=== PATIENT | female | born 1980 ===

== ENCOUNTER 2017-10-18 09:31 | Emergency (ER) | payer SELFPAY ==
[2017-10-18 09:41] VITALS: BP 136/88; PULSE 65; RESP 16; TEMP 98; O2SAT 100
[2017-10-18 09:42] VITALS: BMI 25.2
[2017-10-18] MEDS ORDERED: Naproxen 500 MG TAB PO STA (10:24)
--- NOTE | 2017-10-18 10:30 | ED PDOC ---
Upper Extremity Pain/Injury Time Seen by Provider: 10/18/17 10:11 Chief Complaint (Nursing): Upper Extremity Problem/Injury History Per: Patient History/Exam Limitations: no limitations Additional Complaint(s): 37 yo F R arm dominant, c/o 5 day h/o gradually increasing pain to the L lateral arm that is reproducible when she crosses her L arm over her chest with intermittent numbness to the area. 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 Reports no trauma, injury, fever, other joint pain, chest pain, SOB, dizziness, headache, other joint pain, neck pain or back pain. Past Medical History Vital Signs: Last Vital Signs Temp 98 F 10/18/17 09:41 Pulse 65 10/18/17 09:41 Resp 16 10/18/17 09:41 BP 136/88 10/18/17 09:41 Pulse Ox 100 10/18/17 09:41 - Family History Family History: States: No Known Family Hx - Home Medications Home Medications: Ambulatory Orders Medication Instructions Recorded Ondansetron Hydrochloride 4 mg PO Q6 PRN #12 tab 05/24/14 Ranitidine HCl [Zantac 150] 150 mg PO BID #20 tab 05/24/14 Naproxen 500 mg PO BID #30 tab 10/18/17 - Allergies Allergies/Adverse Reactions: Allergies Allergy/AdvReac Type Severity Reaction Status Date / Time No Known Allergies Allergy Verified 10/18/17 09:52 Review of Systems Constitutional: Negative for: Fever, Malaise Cardiovascular: Negative for: Chest Pain, Palpitations, Edema Respiratory: Negative for: Cough, Shortness of Breath Musculoskeletal: Positive for: Arm Pain (L arm pain). Negative for: Neck Pain, Shoulder Pain, Back Pain, Hand Pain Skin: Negative for: Rash, Lesions Neurological: Negative for: Headache, Dizziness Physical Exam - Reviewed Vital Signs Reviewed: Yes - Physical Exam Appears: Positive for: Well, Non-toxic, No Acute Distress Head Exam: Positive for: ATRAUMATIC, NORMAL INSPECTION, NORMOCEPHALIC Skin: Positive for: Normal Color, Warm, DRY Eye Exam: Positive for: EOMI, Normal appearance, PERRL ENT: Positive for: Normal ENT Inspection Neck: Positive for: Normal, Painless ROM, Supple Cardiovascular/Chest: Positive for: Regular Rate, Rhythm. Negative for: Murmur Respiratory: Positive for: Normal Breath Sounds. Negative for: Rhonchi, Wheezing Pulses-Radial (L): 2+ Pulses-Radial (R): 2+ Back: Positive for: Normal Inspection. Negative for: L CVA Tenderness, R CVA Tenderness, Vertebral Tenderness Extremity: Positive for: Normal ROM, Capillary Refill (<2 sec), Other (+pain elicited with cross arm test of the L arm). Negative for: Tenderness, Deformity , Swelling Neurologic/Psych: Positive for: Alert, weighter II-XII (intact), Oriented. Negative for: Motor/Sensory Deficits - ECG O2 Sat by Pulse Oximetry: 100 Medical Decision Making Medical Decision Making: Plan : - EKG - XR L shoulder - Napsoryn PO XR L shoulder : no fracture, no dislocation, as read by HÉCTOR. EKG : NSR at 65 bpm, (-) acute St changes, as read by PA. X-ray results discussed with the patient in great detail. Patient advised that her symptoms can be due to a rotator cuff impingement. Patient instructed to follow-up with orthopedic referral provided in 1-2 days without fail. Advised to take medication as prescribed. Rest joint and avoid heavy lifting. Return to the emergency room at any time for any new or worsening symptoms. Patient states she fully agrees with and understands discharge instructions. States that she agrees with the plan and disposition. Verbalized and repeated discharge instructions and plan. I have given the patient opportunity to ask any additional questions. Disposition - Clinical Impression Clinical Impression: Left arm pain - Patient ED Disposition Is Patient to be Admitted: No Counseled Patient/Family Regarding: Studies Performed, Diagnosis, Need For Followup, Rx Given - Disposition Referrals: [facility] [Outside] Disposition: Routine/Home Disposition Time: 11:30 Condition: STABLE Additional Instructions: Thank you for letting us take care of you today. You were treated for L arm pain , consider rotator cuff. The emergency medical care you received today was directed towards the acute presenting symptoms. If you were prescribed any medication, please fill it and give as directed. It may take several days for your symptoms to resolve. Return to the Emergency Department at any time if symptoms worsen, do not improve, or if any other problems arise. Please call one of the physicians/clinics you have been referred to that are listed on the Patient Visit Information form that is included in your discharge packet. Bring any paperwork you were given at discharge with you along with any medications to your follow up visit. Our treatment cannot replace ongoing medical care by a primary care provider (PCP) outside of the emergency department. Thank you for allowing the [facility] team to be part of your care today. If you had an X-Ray : A Radiologist will review the ED reading if any change in treatment is needed we will contact you. 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
[2017-10-18] MEDS ORDERED: Naproxen 500 MG TAB PO ONE (10:50)
--- NOTE | 2017-10-18 12:33 | RAD ---
Date of service: 10/18/2017 PROCEDURE: Radiographs of the Left Shoulder HISTORY: Pain. No history of recent/ related trauma provided COMPARISON: No prior. FINDINGS: BONES: Normal. No fracture. JOINTS: Normal. Glenohumeral and acromioclavicular joints preserved. No osteoarthritis. SOFT TISSUES: Normal. OTHER FINDINGS: None. IMPRESSION: Normal radiographs of the left shoulder.
--- NOTE | 2017-10-18 17:03 | CARD ---
APPROVED REPORT Date of service: 10/18/2017 <Conclusion> Normal sinus rhythm with sinus arrhythmia Normal ECG
== END 2017-10-18 12:04 | disposition home or self-care (01) ==
LOC: H.ER 09:31
DX: M79.602 Pain in left arm (principal); R20.2 Paresthesia of skin

== ENCOUNTER 2017-12-30 15:53 | Emergency (ER) | payer SELFPAY ==
[2017-12-30 15:54] VITALS: BMI 25.2
[2017-12-30 15:59] VITALS: BP 102/56; PULSE 84; RESP 16; TEMP 98.2; O2SAT 99
--- NOTE | 2017-12-30 16:45 | ED PDOC ---
Lower Extremity Pain/Injury Time Seen by Provider: 12/30/17 16:00 Chief Complaint (Nursing): Lower Extremity Problem/Injury Chief Complaint (Provider): Left ankle pain History Per: Patient History/Exam Limitations: no limitations Onset/Duration Of Symptoms: Days Current Symptoms Are (Timing): Still Present Additional Complaint(s): 37 yo female with no medical problems presents for evaluation of left ankle pain. PT states she twisted ankle. Pt has localized lateral ankle pain. Mild swelling. 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 Medical History Reviewed: Historical Data, Nursing Documentation, Vital Signs Vital Signs: Last Vital Signs Temp 98.2 F 12/30/17 15:58 Pulse 84 12/30/17 15:58 Resp 16 12/30/17 15:58 BP 102/56 L 12/30/17 15:58 Pulse Ox 99 12/30/17 15:58 - Medical History PMH: No Chronic Diseases - Surgical History Surgical History: No Surg Hx - Family History Family History: States: No Known Family Hx - Living Arrangements Living Arrangements: With Family - Social History Current smoker - smoking cessation education provided: No - Home Medications Home Medications: Ambulatory Orders Medication Instructions Recorded Ondansetron Hydrochloride 4 mg PO Q6 PRN #12 tab 05/24/14 Ranitidine HCl [Zantac 150] 150 mg PO BID #20 tab 05/24/14 Naproxen 500 mg PO BID #30 tab 10/18/17 Naproxen [Naprosyn] 500 mg PO BID PRN #20 tablet 12/30/17 - Allergies Allergies/Adverse Reactions: Allergies Allergy/AdvReac Type Severity Reaction Status Date / Time No Known Allergies Allergy Verified 12/30/17 15:57 Review of Systems ROS Statement: Except As Marked, All Systems Reviewed And Found Negative Constitutional: Negative for: Fever, Chills Musculoskeletal: Positive for: Other (Left ankle pain) Skin: Negative for: Rash, Bruising Physical Exam - Reviewed Nursing Documentation Reviewed: Yes Vital Signs Reviewed: Yes - Physical Exam Appears: Positive for: Well, Non-toxic, No Acute Distress Head Exam: Positive for: ATRAUMATIC, NORMAL INSPECTION, NORMOCEPHALIC Skin: Positive for: Normal Color (No erythema or ecchymosis of the ankle/foot ), Warm Eye Exam: Positive for: Normal appearance ENT: Positive for: Normal ENT Inspection Neck: Positive for: Normal Respiratory: Negative for: Accessory Muscle Use, Respiratory Distress Back: Positive for: Normal Inspection Extremity: Positive for: Normal ROM, Other (Lateral malleous tenderness). Negative for: Deformity, Swelling Neurologic/Psych: Positive for: Alert, Oriented - ECG O2 Sat by Pulse Oximetry: 99 Medical Decision Making Medical Decision Making: XR without acute fracture or dislocation. air cast and crutches Disposition - Clinical Impression Clinical Impression: Ankle sprain - Patient ED Disposition Is Patient to be Admitted: No Counseled Patient/Family Regarding: Diagnosis, Need For Followup, Rx Given - Disposition Referrals: Kolton Ash MD [Staff Provider] - Disposition: Routine/Home Disposition Time: 17:12 Condition: GOOD Prescriptions: Naproxen [Naprosyn] 500 mg PO BID PRN #20 tablet PRN Reason: Pain Instructions: Ankle Sprain (DC) Forms: [employer] (Cameroonian)
--- NOTE | 2017-12-30 17:31 | RAD ---
Date of service: 12/30/2017 PROCEDURE: Left Ankle Radiographs. HISTORY: Lateral left ankle pain COMPARISON: None FINDINGS: BONES: Normal. No fracture. JOINTS: Normal. No osteoarthritis. Ankle mortise maintained. Talar dome intact SOFT TISSUES: Normal. OTHER FINDINGS: None. IMPRESSION: Normal left ankle radiographs.
== END 2017-12-30 19:31 | disposition home or self-care (01) ==
LOC: H.ER 15:53
DX: S93.402A Sprain of unspecified ligament of left ankle, initial encounter (principal); X50.9XXA Other and unspecified overexertion or strenuous movements or postures, initial encounter; Y92.89 Other specified places as the place of occurrence of the external cause